=== PATIENT | male | born 1985 | race Caucasian/White ===

== ENCOUNTER 2021-08-16 11:00 | Inpatient (IN) | payer OTHER ==
[~2021-08-16] VITALS: Ht 175.3 cm; Wt 84.4 kg
[2021-08-16 11:19] VITALS: BP 160/111
[2021-08-16 12:04] LABS: BILIRUBIN Negative (Negative); BLOOD Negative (Negative); CLARITY Clear (Clear); COLOR Yellow (Yellow); GLUCOSE Negative (Negative); KETONE Negative (Negative); LEUKO ESTERASE Negative (Negative); NITRITE Negative (Negative); PH 6.5 (4.5-8.0); SPECIFIC GRAVITY <= 1.005 (1.001-1.030); UROBILINOGEN 0.2 E.U./dl (0.0-1.0)
[2021-08-16 12:11] LABS: URINE AMPHETAMINES < 1000 (1000ng/ml); URINE BARBITURATES < 200 (200ng/ml); URINE BENZODIAZEPINES < 200 (200ng/ml); URINE CANNABINOIDS (THC) < 50 (50ng/ml); URINE COCAINE < 300 (300ng/ml); URINE METHADONE < 300 (300ng/ml); URINE OPIATES < 300 (300ng/ml)
[2021-08-16 12:19] LABS: URINE PHENCYCLIDINE < 25 (25ng/ml)
[2021-08-16 12:26] LABS: EPITHELIAL CELLS 0-2
[2021-08-16 12:37] LABS: BASO # 0.1 10*3/uL (0.0-0.1); BASO % 2.4 % (0.0-1.0); EOS # 0.1 10*3/uL (0.0-0.4); EOS % 1.7 % (1.0-4.0); HEMATOCRIT 43.3 % (42.0-52.0); LYMPH # 0.6 10*3/uL (1.3-4.4); LYMPH % 13.3 % (27.0-41.0); MEAN CELL VOLUME 97.5 fl (80.0-94.0); MEAN CORPUSCULAR HGB 33.8 pg (27.0-31.0); MEAN CORPUSCULAR HGB CONC 34.6 g/dl (33.0-37.0); MEAN PLATELET VOLUME 8.9 fl (9.6-12.3); MONO # 0.3 10*3/uL (0.1-1.0); MONO % 6.6 % (3.0-9.0); NEUT # 3.5 10*3/uL (2.3-7.9); NEUT % 75.8 % (47.0-73.0); PLATELET COUNT AUTOMATED 226 10*3/uL (130-400); RED BLOOD COUNT 4.44 10*6/uL (4.50-5.90); RED CELL DISTRI WIDTH 12.3 % (0-14.5); WHITE BLOOD COUNT 4.6 10*3/uL (4.8-10.8)
[2021-08-16 12:53] LABS: ALKALINE PHOSPHATASE 134 U/L (45-117); BUN 5 mg/dl (7-24); CHLORIDE 103 mmol/L (98-107); CREATININE 0.66 mg/dL (0.70-1.30); POTASSIUM 3.7 mmol/L (3.5-5.1); SGOT/AST 343 IU/L (3-35); SGPT/ALT 134 U/L (12-78); SODIUM 139 mmol/L (136-145); TOTAL PROTEIN 8.4 gm/dL (6.4-8.2)
[2021-08-16 12:56] VITALS: BP 151/101
[2021-08-16 12:58] LABS: ACETAMINOPHEN (TYLENOL) < 5.0 ug/ml (10-30)
[2021-08-16 14:11] VITALS: BP 107/60
[2021-08-16 15:35] VITALS: BP 132/96
[2021-08-16] MEDS ORDERED: NEURONTIN300 MG PO (16:30)
[2021-08-16 20:00] VITALS: BP 133/94
[2021-08-17] VITALS: BP 150/94
[2021-08-17 06:20] LABS: BASO # 0.1 10*3/uL (0.0-0.1); BASO % 1.4 % (0.0-1.0); EOS # 0.1 10*3/uL (0.0-0.4); EOS % 1.6 % (1.0-4.0); HEMATOCRIT 40.7 % (42.0-52.0); LYMPH # 0.4 10*3/uL (1.3-4.4); LYMPH % 10.1 % (27.0-41.0); MEAN CELL VOLUME 99.5 fl (80.0-94.0); MEAN CORPUSCULAR HGB 34.2 pg (27.0-31.0); MEAN CORPUSCULAR HGB CONC 34.4 g/dl (33.0-37.0); MONO # 0.4 10*3/uL (0.1-1.0); MONO % 9.9 % (3.0-9.0); NEUT # 3.3 10*3/uL (2.3-7.9); NEUT % 76.8 % (47.0-73.0); PLATELET COUNT AUTOMATED 188 10*3/uL (130-400); RED BLOOD COUNT 4.09 10*6/uL (4.50-5.90); RED CELL DISTRI WIDTH 12.4 % (0-14.5); WHITE BLOOD COUNT 4.3 10*3/uL (4.8-10.8)
[2021-08-17 06:52] LABS: ALKALINE PHOSPHATASE 130 U/L (45-117); BUN 7 mg/dl (7-24); CHLORIDE 102 mmol/L (98-107); CHOLESTEROL 285 mg/dL (<200); CREATININE 0.71 mg/dL (0.70-1.30); FREE T4 0.94 ng/dl (0.76-1.46); LDL CHOLESTEROL 148 mg/dL (9-159); POTASSIUM 3.4 mmol/L (3.5-5.1); SGOT/AST 314 IU/L (3-35); SGPT/ALT 118 U/L (12-78); SODIUM 138 mmol/L (136-145); TOTAL PROTEIN 7.5 gm/dL (6.4-8.2); TRIGLYCERIDES 73 mg/dl (<150)
[2021-08-17 08:00] VITALS: BP 106/100
[2021-08-17 08:30] LABS: VITAMIN D, 25-HYDROXY 12.1 ng/mL (30-100)
[2021-08-17 12:00] VITALS: BP 167/60
[2021-08-17 16:00] VITALS: BP 160/100
[2021-08-17 20:00] VITALS: BP 151/109
[2021-08-17 23:44] VITALS: BP 145/112
[2021-08-18 01:23] VITALS: BP 128/90
[2021-08-18 03:59] VITALS: BP 126/97
[2021-08-18 07:51] LABS: BASO # 0.1 10*3/uL (0.0-0.1); BASO % 1.2 % (0.0-1.0); EOS # 0.1 10*3/uL (0.0-0.4); HEMATOCRIT 41.4 % (42.0-52.0); LYMPH # 0.5 10*3/uL (1.3-4.4); LYMPH % 12.7 % (27.0-41.0); MEAN CORPUSCULAR HGB 33.9 pg (27.0-31.0); MEAN CORPUSCULAR HGB CONC 33.6 g/dl (33.0-37.0); MEAN PLATELET VOLUME 10.3 fl (9.6-12.3); MONO # 0.3 10*3/uL (0.1-1.0); MONO % 8.2 % (3.0-9.0); NEUT % 75.7 % (47.0-73.0); PLATELET COUNT AUTOMATED 178 10*3/uL (130-400); RED CELL DISTRI WIDTH 12.3 % (0-14.5)
[2021-08-18 08:00] VITALS: BP 154/108
[2021-08-18 08:08] LABS: ALKALINE PHOSPHATASE 108 U/L (45-117); BUN 8 mg/dl (7-24); CHLORIDE 103 mmol/L (98-107); CREATININE 0.76 mg/dL (0.70-1.30); POTASSIUM 3.2 mmol/L (3.5-5.1); SGOT/AST 152 IU/L (3-35); SGPT/ALT 88 U/L (12-78); SODIUM 138 mmol/L (136-145); TOTAL PROTEIN 7.7 gm/dL (6.4-8.2)
[2021-08-18 16:00] VITALS: BP 130/100
[2021-08-18 20:00] VITALS: BP 124/96
[2021-08-19 08:00] VITALS: BP 119/80
[2021-08-19 09:12] LABS: BUN 15 mg/dl (7-24); CHLORIDE 106 mmol/L (98-107); CREATININE 0.68 mg/dL (0.70-1.30); POTASSIUM 3.3 mmol/L (3.5-5.1); SODIUM 140 mmol/L (136-145)
[2021-08-19 12:00] VITALS: BP 132/101
[2021-08-19 16:00] VITALS: BP 127/103
[2021-08-19 20:00] VITALS: BP 141/93
[2021-08-20] VITALS: BP 132/80
[2021-08-20 06:12] LABS: BUN 8 mg/dl (7-24); CHLORIDE 106 mmol/L (98-107); CREATININE 0.73 mg/dL (0.70-1.30); POTASSIUM 3.4 mmol/L (3.5-5.1); SODIUM 138 mmol/L (136-145)
[2021-08-20 08:00] VITALS: BP 109/69
[2021-08-20 12:00] VITALS: BP 131/97
[2021-08-20 16:00] VITALS: BP 128/88
[2021-08-20 20:00] VITALS: BP 160/88
[2021-08-21] VITALS: BP 139/96
[2021-08-21 08:00] VITALS: BP 136/88
[2021-08-21] MEDS ORDERED: ATARAX,VISTARIL50 MG PO (10:36)
[2021-08-21] MEDS ORDERED: VITAMIN D350 MC2 PO (10:37)
== END 2021-08-21 12:06 | disposition home or self-care (01) | DRG 774 ==
LOC: ED 11:00 → 4E 14:20 → EDHOLD 14:20 → 4E 14:30 → ICCU 08-17 20:54 → 5E 08-19 17:59
PROVIDERS: Family Medicine; Internal Medicine; Physician Assistant; ADMIT Internal Medicine; ATTEND Internal Medicine
DX: F10.230 Alcohol dependence with withdrawal, uncomplicated (principal); F14.10 Cocaine abuse, uncomplicated; D72.819 Decreased white blood cell count, unspecified; R74.01 Elevation of levels of liver transaminase levels; R73.9 Hyperglycemia, unspecified; R00.0 Tachycardia, unspecified; D50.9 Iron deficiency anemia, unspecified; E87.6 Hypokalemia; E80.6 Other disorders of bilirubin metabolism; E55.9 Vitamin D deficiency, unspecified; K50.919 Crohn's disease, unspecified, with unspecified complications; Z87.891 Personal history of nicotine dependence; Z79.899 Other long term (current) drug therapy